=== PATIENT | female | born 1995 | race Caucasian/White ===

== ENCOUNTER 2016-09-24 19:48 | Emergency (ER) | payer OTHER ==
[2016-09-24 20:03] VITALS: BP 115/79; PULSE 79; TEMP 98.3; BMI 28.1
--- NOTE | 2016-09-24 21:16 | PDOC ---
History of Present Illness - General Chief Complaint: Chest Pain Stated Complaint: CHEST PAIN Time Seen by Provider: 09/24/16 20:29 History Source: Patient Exam Limitations: No Limitations - History of Present Illness Initial Comments: 09/24/16 21:19 My Chief Complaint: Left sided chest discomfort History of present illness: Patient is a 20-year-old female here today with complaints of intermittent chest pain that started approximately 3 PM today with a sensation of shortness of breath when having that lasted 20 seconds. Patient reports having same sensation approximately 3 months ago patient went to months ago to [facility] and reports having a CT of her chest that did not reveal PE. Patient reports that she only had the sensation twice since then and then today. Patient reports the pain felt sharp. Patient reports going to the gym yesterday running, doing squats, and chest pressed with about 25 pounds of weight. Patient speaking in complete sentences does not appear to be in any distress presently. Patient is not on oral contraceptives this does not have tachycardia, has not had recent surgery or travel. Timing/Duration: intermittent Severity: moderate Associated Symptoms: reports: shortness of breath Past History - Past Medical History Allergies/Adverse Reactions: Allergies Allergy/AdvReac Type Severity Reaction Status Date / Time No Known Allergies Allergy Verified 09/24/16 19:58 Home Medications: Ambulatory Orders NK [No Known Home Medication] 09/24/16 - Psycho/Social/Smoking Cessation Hx Suicidal Ideation: No Smoking History: Never smoked Review of Systems - Review of Systems Able to Perform ROS?: Yes Constitutional: No: Symptoms Reported HEENTM: No: Symptoms Reported Respiratory: Yes: Shortness of Breath (when having left sided chest discomfort earlier today at 3 pm lasted 20 sec) Cardiac (ROS): Yes: Chest Pain (left sided at 3 pm today lasted 30 sec) ABD/GI: No: Symptoms Reported Musculoskeletal: No: Symptoms Reported Integumentary: No: Symptoms Reported Neurological: No: Symptoms reported *Physical Exam - Vital Signs Last Vital Signs Temp Pulse Resp BP Pulse Ox 98.3 F 79 16 115/79 100 09/24/16 20:02 09/24/16 20:02 09/24/16 20:02 09/24/16 20:02 09/24/16 20:02 - Physical Exam General Appearance: Yes: Appropriately Dressed Neck: negative: Tender, Lymphadenopathy (R), Lymphadenopathy (L), Rigidity, Tender lateral, Tender midline Respiratory/Chest: positive: Chest Tender (b/l chest wall upper and mid), Lungs Clear, Normal Breath Sounds. negative: Respiratory Distress, Accessory Muscle Use, Labored Respiration, Rapid RR, Decreased Breath Sounds, Paradoxal Breathing , Crackles, Rales, Rhonchi, Stridor, Wheezing, Hyperresonant, Dullness, Plerual Rub Cardiovascular: positive: Regular Rhythm, Regular Rate, S1, S2 Integumentary: positive: Normal Color Neurologic: positive: Alert, Normal Response Heart Score/ECG Review - ECG Impressions Comment:: 09/24/16 21:18 NSR VENT RATE 76 QRS DURATION 96MS QT/QTc 372/[address] Mcdonough ED Treatment Course - ADDITIONAL ORDERS Additional order review: Laboratory Results 09/24/16 20:00 Urine HCG, Qual Negative Medical Decision Making - Medical Decision Making 09/24/16 21:22 Patient is a 20-year-old female here today with complaints of intermittent chest pain that started approximately 3 PM today with a sensation of shortness of breath when having that lasted 20 seconds. Patient reports having same sensation approximately 3 months ago patient went to months ago to [facility] and reports having a CT of her chest that did not reveal PE. Patient reports that she only had the sensation twice since then and then today. Patient reports the pain felt sharp. Patient reports going to the gym yesterday running, doing squats, and chest pressed with about 25 pounds of weight. Patient speaking in complete sentences does not appear to be in any distress presently. Patient is not on oral contraceptives this does not have tachycardia , has not had recent surgery or travel. She does not patient denies doing any heavy lifting at work or any other strenuous activities. Pain is not reproducible with movement but is with palpation of chest wall. Patient's mother is with her and denies any sudden cardiac at young age and family. Chest discomfort left sided Chest wall PLAN: EKG NSR, vent rate [address] Lopez xray chest PA/lateral no infiltrate noted urine hcg negative ibuprofen 400 mg po now 09/24/16 21:26 09/24/16 21:32 *DC/Admit/Observation/Transfer Diagnosis at time of Disposition: Chest wall discomfort - Discharge Dispostion Disposition: HOME Condition at time of disposition: Stable - Referrals Referrals: Lucille Robledo MD [Primary Care Provider] - - Patient Instructions Additional Instructions: I'll up with your primary care provider within the next few days Return to emergency room if symptoms worsen or new symptoms develop Take ibuprofen as needed as directed by systems operator for any pain Follow-up with cardiology as soon as possible if pain continues Patient voiced understanding of discharge instructions and all questions were answered - Post Discharge Activity
[2016-09-24] MEDS ORDERED: IBUPROFEN 400 MG TABLET (FP) PO ONE ×2 (21:29→21:32)
--- NOTE | 2016-09-26 13:42 | EKG ---
Test Reason : Blood Pressure : / mmHG Vent. Rate : 076 BPM Atrial Rate : 076 BPM P-R Int : 142 ms QRS Dur : 096 ms QT Int : 372 ms P-R-T Axes : 059 035 031 degrees QTc Int : 418 ms NORMAL SINUS RHYTHM NORMAL ECG NO PREVIOUS ECGS AVAILABLE Confirmed by BRITTANY ADEN MD ([id number]) on 09/26/2016 1:42:24 PM Referred By: Confirmed By:BRITTANY ADEN MD
== END 2016-09-24 21:46 | disposition home or self-care (01) ==
LOC: JERFT 19:48
DX: R07.89 Other chest pain (principal)
CPT/HCPCS: 71020-TC; 84703; 93005; 93010; 99281-25

== ENCOUNTER 2017-04-25 23:24 | Emergency (ER) | payer OTHER ==
[2017-04-25 23:39] VITALS: BP 145/80; PULSE 72; TEMP 97.8; BMI 29.0
--- NOTE | 2017-04-26 01:37 | PDOC ---
History of Present Illness - General Chief Complaint: Shortness of Breath Stated Complaint: S.O.B Time Seen by Provider: 04/26/17 01:19 History Source: Patient Exam Limitations: No Limitations - History of Present Illness Initial Comments: CHIEF COMPLAINT: 21 y/o afebrile female c/o chest pain and SOB today. HISTORY OF PRESENT ILLNESS: The patient states she's been getting chest pain intermittently for the past 6-8 months. She was seen at [facility] 6 months ago , had a CTA to r/o PE (it was negative) and was discharged with instructions to f/u with [employer], which she never did. She states today the pain became so bad she couldn't breathe. She denies f/c, n/v/d, TURNER, cough, hemoptysis, abd pain, back pain, recent travel. She is a never smoker. She does admit to lifting 5lb boxes daily for work. Vital signs on arrival are within normal limits. REVIEW OF SYSTEMS: GENERAL/CONSTITUTIONAL: No fever/chills. No weakness. No weight change. HEAD, EYES, EARS, NOSE AND THROAT: No change in vision. No ear pain or discharge. No sore throat. CARDIOVASCULAR: +chest pain and SOB. RESPIRATORY: No cough, wheezing, or hemoptysis. GASTROINTESTINAL: No abd pain, nausea, vomiting, diarrhea . GENITOURINARY: No dysuria, frequency, or change in urination. MUSCULOSKELETAL: No joint or muscle swelling or pain. No neck or back pain. SKIN: No rash or easy bruising. NEUROLOGIC: No headache, vertigo, loss of consciousness, or loss of sensation. PHYSICAL EXAM: GENERAL: The patient is awake, alert, and fully oriented, in no acute distress. She is well appearing, ambulatory, in NAD or obvious discomfort. She speaks in full sentences without difficulty. HEAD: Normal with no signs of trauma. ENT: Pupils equal, round and reactive to light, extraocular movements intact, sclera anicteric, conjunctiva clear. Neck supple. LUNGS: Clear to auscultation bilaterally. Normal excursion. No respiratory distress or use of accessory muscles. CV: RRR, S1/S2, no MRG. Cap refill < 2 sec. CHEST WALL: Reproducible chest pain with palpation of anterior chest wall, especially on left side. ABDOMEN: Soft, non-distended, non-tender even to deep palpation, no hepatomegaly or splenomegaly, no masses. EXTREMITIES: Normal range of motion, no edema. NEUROLOGICAL: Normal speech, normal gait. CN II-XII grossly intact. PSYCH: Normal mood, normal affect. SKIN: Warm, dry, normal turgor, no rashes or lesions noted. Past History - Past Medical History Allergies/Adverse Reactions: Allergies Allergy/AdvReac Type Severity Reaction Status Date / Time No Known Allergies Allergy Verified 04/25/17 23:36 Home Medications: Ambulatory Orders NK [No Known Home Medication] 09/24/16 COPD: No Other medical history: Pt denies - Suicide/Smoking/Psychosocial Hx Smoking History: Never smoked Have you smoked in the past 12 months: No Information on smoking cessation initiated: No Hx Alcohol Use: No Drug/Substance Use Hx: No Substance Use Type: None *Physical Exam - Vital Signs Last Vital Signs Temp Pulse Resp BP Pulse Ox 97.8 F 72 20 145/80 100 04/25/17 23:36 04/25/17 23:36 04/25/17 23:36 04/25/17 23:36 04/25/17 23:36 Heart Score/ECG Review - ECG Intrepretation Comment:: Twelve-lead EKG was performed and reviewed by Dr. Raymundo. There is normal sinus rhythm with a normal rate. The axis is normal. The intervals are normal. There are no ST or T wave abnormalities. Impression: Normal twelve-lead EKG ED Treatment Course - LABORATORY CBC & Chemistry Diagram: 04/26/17 01:30 04/26/17 01:35 - ADDITIONAL ORDERS Additional order review: Laboratory Results 04/26/17 04/26/17 01:35 01:30 Sodium 141 Potassium 4.1 Chloride 105 Carbon Dioxide 26 Anion Gap 10 BUN 17 Creatinine 0.7 Creat Clearance w eGFR > 60 Random Glucose 91 Calcium 8.5 Total Bilirubin 0.3 AST 19 ALT 27 Alkaline Phosphatase 86 Creatine Kinase 128 Troponin I < 0.02 Total Protein 7.9 Albumin 3.9 Serum , Qual Negative 04/26/17 01:30 RBC 4.26 MCV 90.4 MCHC 33.6 RDW 13.9 MPV 9.1 Neutrophils % 50.6 Lymphocytes % 41.4 H Monocytes % 6.8 Eosinophils % 0.8 Basophils % 0.4 - RADIOLOGY Radiology Studies Ordered: Category Date Time Status CHEST PA & LAT [RAD] Stat Radiology 04/26/17 01:30 Taken - Medications Given in the ED: ED Medications Discontinued Medications Generic Name Dose Route Start Last Admin Trade Name Natividad PRN Reason Stop Dose Admin Ibuprofen 800 mg 04/26/17 02:32 04/26/17 02:45 Motrin - PO 04/26/17 02:33 800 mg ONCE ONE Administration Medical Decision Making - Medical Decision Making A/P: 21 y/o female with intermittent chest pain x 8 months. Suspect musculoskeletal in nature. Plan is to do cardiac work up. Labs normal. EKG normal CXR unchanged from prior Patient given PO motrin. Suggested she take motrin every 6 hours with food for pain, and follow up with Dr. Brooks within 2 weeks. Return to the ER with any worsening or concerning symptoms. The patient verbalizes understanding of all instructions, has no further questions and is awaiting discharge. *DC/Admit/Observation/Transfer Diagnosis at time of Disposition: Atypical chest pain, Musculoskeletal chest pain - Discharge Dispostion Disposition: HOME Condition at time of disposition: Good - Referrals Referrals: Lucille oRbledo MD [Primary Care Provider] - Gerber Brooks MD [Staff Physician] - 1 week - Patient Instructions Printed Discharge Instructions: DI for Atypical Chest Pain, DI for Musculoskeletal Pain Additional Instructions: Discharge Instructions: -Your EKG, chest xray and labs were all normal -Please take 600mg of over the counter Ibuprofen every 6 hours with food for chest pain -Ice affected area -Follow up with Dr. Brooks within 2 weeks -Return to the ER with any worsening or concerning symptoms. - Post Discharge Activity
[2017-04-26 01:45] LABS: BASO % 0.4 % (0-2.0); EOS % 0.8 % (0-4.5); HEMATOCRIT 38.5 % (32.4-45.2); HEMOGLOBIN 12.9 GM/dL (10.7-15.3); LYMPH % 41.4 % (8-40); MCH 30.4 pg (25.7-33.7); MCHC 33.6 g/dl (32.0-36.0); MEAN CELL VOLUME 90.4 fl (80-96); MEAN PLT VOLUME 9.1 fl (7.5-11.1); MONO % 6.8 % (3.8-10.2); NEUT % 50.6 % (42.8-82.8); PLATELET COUNT 246 K/MM3 (134-434); RBC 4.26 M/mm3 (3.60-5.2); RDW 13.9 % (11.6-15.6)
--- NOTE | 2017-04-26 02:02 | PDOC ---
*Physical Exam - Vital Signs Last Vital Signs Temp Pulse Resp BP Pulse Ox 97.8 F 72 20 145/80 100 04/25/17 23:36 04/25/17 23:36 04/25/17 23:36 04/25/17 23:36 04/25/17 23:36 ED Treatment Course - LABORATORY CBC & Chemistry Diagram: 04/26/17 01:30 04/26/17 01:35 - ADDITIONAL ORDERS Additional order review: 04/26/17 01:30 RBC 4.26 MCV 90.4 MCHC 33.6 RDW 13.9 MPV 9.1 Neutrophils % 50.6 Lymphocytes % 41.4 H Monocytes % 6.8 Eosinophils % 0.8 Basophils % 0.4 Medical Decision Making - Medical Decision Making 04/26/17 02:01 agree with care from PRINCE Murray *DC/Admit/Observation/Transfer Diagnosis at time of Disposition: Atypical chest pain, Musculoskeletal chest pain - Discharge Dispostion Disposition: HOME Condition at time of disposition: Good - Referrals Referrals: Gerber Brooks MD [Staff Physician] - 1 week Lucille Robledo MD [Primary Care Provider] - - Patient Instructions Printed Discharge Instructions: DI for Atypical Chest Pain, DI for Musculoskeletal Pain Additional Instructions: Discharge Instructions: -Your EKG, chest xray and labs were all normal -Please take 600mg of over the counter Ibuprofen every 6 hours with food for chest pain -Ice affected area -Follow up with Dr. Brooks within 2 weeks -Return to the ER with any worsening or concerning symptoms. - Post Discharge Activity
[2017-04-26 02:18] LABS: ALBUMIN 3.9 g/dl (3.4-5.0); ANION GAP 10 (8-16); BILIRUBIN,TOTAL 0.3 mg/dL (0.2-1.0); BLOOD UREA NITROGEN 17 mg/dL (7-18); CALCIUM 8.5 mg/dL (8.5-10.1); CHLORIDE 105 mmol/L (98-107); CO2 26 mmol/L (21-32); CREATININE 0.7 mg/dL (0.55-1.02); GLUCOSE,RANDOM 91 mg/dL (74-106); POTASSIUM 4.1 mmol/L (3.5-5.1); SGOT/AST 19 U/L (15-37); SGPT/ALT 27 U/L (12-78); SODIUM 141 mmol/L (136-145); TOT PROT 7.9 g/dl (6.4-8.2)
[2017-04-26 02:20] LABS: ALK PHOS 86 U/L (45-117)
[2017-04-26] MEDS ORDERED: IBUPROFEN 400 MG TABLET (FP) PO ONE ×2 (02:32→02:43)
--- NOTE | 2017-04-26 10:43 | EKG ---
Test Reason : Blood Pressure : / mmHG Vent. Rate : 065 BPM Atrial Rate : 065 BPM P-R Int : 160 ms QRS Dur : 092 ms QT Int : 388 ms P-R-T Axes : 054 056 044 degrees QTc Int : 403 ms NORMAL SINUS RHYTHM NORMAL ECG WHEN COMPARED WITH ECG OF 24-SEP-2016 19:58, NO SIGNIFICANT CHANGE WAS FOUND Confirmed by MELO CAZARES MD ([id number]) on 04/26/2017 10:42:38 AM Referred By: Confirmed By:MELO CAZARES MD
== END 2017-04-26 03:14 | disposition home or self-care (01) ==
LOC: JER 23:24
DX: R07.89 Other chest pain (principal); M79.1 Myalgia
CPT/HCPCS: 36415; 71046-TC-FY; 80053; 82550; 84484; 84703; 85025; 93005; 93010; 99281-25